=== PATIENT | male | born 1955 | race Caucasian/White ===

== ENCOUNTER 2016-10-03 09:28 | Day surgery (SDC) | payer BC ==
[~2016-10-03 09:28] MED LIST: ACETAMINOPHEN 1000MG/100 ML PREMIX IV ONE
[2016-10-03] MEDS ORDERED: BUPIVACAINE 0.25% W/EPI MPF 30ML VIAL IVP ONE (14:38)
[2016-10-03] MEDS ORDERED: TRAMADOL HCL 50 MG TABLET PO ONE (14:38)
[2016-10-03] MEDS ORDERED: KETOROLAC 30 MG/ML VIAL IVP ONE (14:44)
[2016-10-03] MEDS ORDERED: SEVOFLURANE 250 ML INH ONE (14:44)
[2016-10-03] MEDS ORDERED: PROPOFOL 10 MG/ML VIAL IV ONE (14:44)
[2016-10-03] MEDS ORDERED: LIDOCAINE 2% MDV (20MG/ML) 20ML VIAL IV ONE (14:44)
--- NOTE | 2016-10-07 09:54 | Operative Note ---
DATE OF SURGERY: 10/03/2016 PREOPERATIVE DIAGNOSES: 1. Torn medial meniscus of the right knee. 2. Chondromalacia of the right knee. POSTOPERATIVE DIAGNOSES: 1. Torn medial and lateral meniscus, right knee. 2. Chondromalacia of the patella and trochlea, right knee. 3. Synovitis right knee (2 compartments). OPERATIVE PROCEDURE: 1. Arthroscopic partial medial and lateral meniscectomy of the right knee. 2. Arthroscopic partial synovectomy (2 compartments), right knee. 3. Arthroscopic chondroplasty of the trochlea, right knee. DESCRIPTION: This 61-year-old male was taken to the operating room and placed in a supine position on the operating room table where general anesthesia was induced and the right lower extremity was elevated, exsanguinated, and the tourniquet inflated to 300 mmHg and arthroscopic knee johnston applied. Right knee prepped with Hibiclens and draped in the usual sterile fashion. An inferolateral portal was established for a 4 mm arthroscope, and initial evaluation of the joint demonstrated grade 2 chondromalacia of the patella, but the articular cartilage was not grossly unstable, and it was not further disturbed. The trochlea, however, did demonstrate an area of grade 4 lesion in the center of the trochlea, which was approximately 0.75 cm to 1 cm in greatest dimension with loose fragmented articular cartilage around its periphery. Utilizing the rotating shaver, this was smoothed to remove unstable fragments of articular cartilage. We then directed our attention to the medial compartment and a large flap tear of the medial meniscus was present sticking up into the anteromedial portion of the knee in the gutter, and this was excised to visualize the remainder of the meniscus, which demonstrated another flap tear at the posterior horn, and then horizontal cleavage components extending around to approximately the 5 o'clock position. Utilizing the basket forceps and rotating shaver, we were able to stabilize the remainder of the medial meniscus, and re-probing confirmed its stability. Little to no articular cartilage defects were present in the medial compartment, only very superficial scuffing was present, but no unstable fragments of articular cartilage were noted. The intercondylar notch was examined and found to be normal. The lateral compartment was entered, and a degenerative tear of the anterior horn of the lateral meniscus was present. This tear extended from the anterior root to approximately the 9:30 position involving approximately 50% of the depth of the meniscus. Utilizing the basket forceps and rotating shaver, we resected to what I felt was a stable rim, and no evidence of tearing of the posterior horn seemed to be evident at the articular cartilage. The lateral compartment also appeared to demonstrate essentially normal findings. The joint was then copiously irrigated and suctioned, removing all debris from the joint. The patient did have synovitis in the anterior medial and lateral compartments and partial synovectomy were performed in both. The instruments were removed. The portals infiltrated with 0.25% Marcaine with epinephrine. Sterile dressings were applied after stitches had been placed in the portals and the patient was taken to the recovery room in satisfactory condition. GROSS PATHOLOGY: This patient demonstrated grade 4 chondromalacia of the trochlea, grade 2 chondromalacia of the patella, synovitis was present, and large flap tears of the medial meniscus were present, and degenerative tear of the anterior horn and body of the lateral meniscus was present. MTDD
== END 2016-10-03 12:27 | disposition home or self-care (01) ==
LOC: SUR 09:28
PROVIDERS: ATTEND Orthopaedic Surgery
DX: S83.241A Other tear of medial meniscus, current injury, right knee, initial encounter (principal); E78.00 Pure hypercholesterolemia, unspecified
CPT/HCPCS: 29880; 29876; 01400; 93005; 93010; J1885